=== PATIENT | female | born 1955 | race Caucasian/White ===

== ENCOUNTER → 2018-02-18 | Outpatient (CLI) | payer OTHER ==
--- NOTE | 2018-02-18 08:58 | RAD ---
EXAM DESCRIPTION: Knee,Left Complete CLINICAL HISTORY: 62 years, Female, PAIN IN LEFT KNEE COMPARISON: None TECHNIQUE: Four views left knee FINDINGS: Small joint effusion is present with very little degenerative arthropathy. Tiny amount of marginal osteophyte formation in several locations are noted. Joint spaces well-maintained with minimal narrowing at the periphery of the medial joint compartment. The bones are well-mineralized. No fracture or dislocation seen. IMPRESSION: 1. Minimal degenerative changes and small joint effusion left knee. Electronically signed by: Jose C Munoz MD 02/18/2018 8:57 AM CDT
--- NOTE | 2018-02-18 09:02 | RAD ---
EXAM DESCRIPTION: Pelvis CLINICAL HISTORY: 62 years Female, PAIN IN LEFT HIP COMPARISON: None. FINDINGS: The bony pelvis is intact with the joint spaces well-maintained. No specific left hip abnormality is noted. The pubic ramus and the ischium appear intact. Bony pelvic ring is intact. No soft tissue masses noted. IMPRESSION: No acute abnormality noted. Electronically signed by: Jose C Munoz MD 02/18/2018 9:01 AM CDT
== END ==
LOC: RAD 08:05
PROVIDERS: ATTEND Orthopaedic Surgery
DX: M25.562 Pain in left knee (principal); M25.552 Pain in left hip

== ENCOUNTER → 2018-05-01 | Outpatient (CLI) | payer OTHER | LOC: RESP 10:29 | PROVIDERS: ATTEND Orthopaedic Surgery | DX: Z01.818 Encounter for other preprocedural examination (principal) ==

== ENCOUNTER → 2018-05-04 | Outpatient (CLI) | payer OTHER | LOC: GMAL 12:01 | PROVIDERS: ATTEND Family Medicine | DX: R30.0 Dysuria (principal) ==

== ENCOUNTER 2018-05-08 05:35 | Day surgery (SDC) | payer OTHER ==
[2018-05-08] MEDS ORDERED: SODIUM CHL 0.9% 100ML MINI-BAG 100 ML IVPB ONE (06:08)
[2018-05-08] MEDS ORDERED: ceFAZolin SODIUM 1 GM VIAL ONE ×3 (06:09→09:00)
[2018-05-08] MEDS ORDERED: LACTATED RINGERS 1,000 ML ONE (06:09)
[2018-05-08] MEDS ORDERED: LACTATED RINGERS 1,000 ML BAG IV ONE (07:10)
[2018-05-08] MEDS ORDERED: MORPHINE SULFATE INJ 10 MG/ML VIAL ONE (07:33)
[2018-05-08] MEDS ORDERED: MIDAZOLAM INJ 2 MG/2 ML VIAL ONE (07:34)
[2018-05-08] MEDS ORDERED: LIDOCAINE 1% 10 ML VIAL INJ ONE ×2 (08:20→10:00)
[2018-05-08] MEDS ORDERED: BUPIVACAINE 0.25% W/EPI 50 ML VIAL INJ ONE (08:20)
[2018-05-08] MEDS: BUPIVACAINE LIPOSOME 13.3 MG/ML VIAL INJ ONE ×2 (08:39→09:09)
[2018-05-08] MEDS: SODIUM CHLORIDE 0.9% 50 ML VIAL ONE ×2 (08:40→09:09)
[2018-05-08] MEDS: ceFAZolin SODIUM 1 GM VIAL ONE ×2 (08:40→09:06)
[2018-05-08] MEDS: VANCOMYCIN HCL INJ 1,000 MG VIAL IVPB ONE ×2 (08:40→09:06)
[2018-05-08] MEDS ORDERED: SODIUM CHLORIDE 0.9% 1000ML 1,000 ML ONE (09:00)
[2018-05-08] MEDS ORDERED: DEXAMETHASONE INJ 10 MG/ML VIAL IV ONE (10:00)
[2018-05-08] MEDS ORDERED: KETOROLAC TROMETHAMINE INJ 30 MG/ML VIAL IV ONE (10:00)
[2018-05-08] MEDS ORDERED: METOCLOPRAMIDE HCL INJ 10 MG/2 ML VIAL IV ONE (10:00)
[2018-05-08] MEDS ORDERED: raNITIdine HCL INJ 25 MG/ML VIAL IV ONE (10:00)
[2018-05-08] MEDS ORDERED: PROPOFOL 200 MG/20 ML VIAL IV ONE (10:00)
[2018-05-08 11:07] VITALS: BP 114/74; TEMP 97.5; O2SAT 96
--- NOTE | 2018-05-20 08:53 | OP ---
DATE OF PROCEDURE: 05/08/18 PREOPERATIVE DIAGNOSIS: 1. Left knee meniscus tear. 2. Left knee osteoarthritis. POSTOPERATIVE DIAGNOSIS: 1. Left knee medial meniscus tear. 2. Left knee arthritis. 3. Loose body of the knee. PROCEDURE: 1. Chondroplasty. 2. Partial meniscectomy. 3. Removal of loose body. SURGEON: Shiraz Guerrire MD. AGED OR DISABLED CARER: Johnson Ruvalcaba CST, SA-C. ANESTHESIA: General anesthesia. COMPLICATIONS: None. FINDINGS: 1. Flap tear of the body of the medial meniscus with also degenerative fraying. 2. Full thickness cartilaginous loss in the medial femoral condyle. 3. Normal anterior cruciate ligament, normal posterior cruciate ligament. 4. 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 5. Full thickness cartilaginous loss on the lateral tibial plateau. 6. Degenerative changes in the lateral meniscus. 7. Normal lateral gutter. 8. Normal suprapatellar pouch. 9. Softening of the cartilage of the patellofemoral joint. 10. Normal medial gutter. INDICATION: Ms. Lorenzo has a long history of knee pain. She has had injections, however, has failed to gain relief with that or oral anti-inflammatories. She has modified her activities. However, that has failed to give her relief either. Because of her ongoing pain and failure of relief, she has requested operative intervention. After discussing the risks, benefits and alternatives to operative therapy, the patient has given informed consent. PROCEDURE: The patient was brought to the Operating Room and placed in supine position. General anesthesia was induced and the patient's leg was sterilely prepped and draped. Following prepping and draping, standard anteromedial and anterolateral portals were established. Diagnostic arthroscopy was carried out with the above findings. Attention was then focused on the medial femoral condyle. A 3.5 mm full radius shaver was used to debride the cartilaginous surfaces to stable base. The shaver was also used to debride the meniscus to a stable base. All debris was cleared from the knee. The knee was thoroughly irrigated and drained. Following draining of the knee, the wounds were closed with Nylon suture. Sterile dressings were placed. The patient was awoken from anesthesia and taken to Recovery. POSTOPERATIVE PLAN: The patient will followup with us in approximately two days. #[id number] [facility]
== END 2018-05-08 11:10 | disposition home or self-care (01) ==
LOC: AMB 05:35
PROVIDERS: ATTEND Orthopaedic Surgery
DX: M23.204 Derangement of unspecified medial meniscus due to old tear or injury, left knee (principal); M23.42 Loose body in knee, left knee; M94.262 Chondromalacia, left knee; M17.12 Unilateral primary osteoarthritis, left knee; Z79.899 Other long term (current) drug therapy
CPT/HCPCS: 01400; 29881; A4216; J0690; J1100; J1885; J2250; J2270; J2765; J2780; J3370; J3490; J7030; J7050; J7120

== ENCOUNTER → 2018-06-15 | Outpatient (CLI) | payer OTHER | LOC: RESP 08:29 | PROVIDERS: ATTEND Orthopaedic Surgery | DX: Z01.818 Encounter for other preprocedural examination (principal) ==

== ENCOUNTER 2018-07-01 06:08 | Day surgery (SDC) | payer OTHER ==
--- NOTE | 2018-06-30 07:50 | HP ---
CHIEF COMPLAINT: Right knee pain. HISTORY OF PRESENT ILLNESS: is a 62-year-old female with a history of knee pain that has been refractory to conservative measures. is having difficulty with her daily activities because of this. She does complain of some occasional clicking, but has had no gross locking. recently had surgery on the left knee for similar symptoms and she got complete relief. Because of her ongoing symptoms, she has requested operative intervention. After discussing the risks, benefits and alternatives to arthroscopy, the patient has given informed consent. PAST SURGICAL HISTORY: 1. Hysterectomy. 2. Knee arthroscopy. MEDICATIONS: 1. Meloxicam. 2. Ultram. ALLERGIES: SULFA. FAMILY HISTORY: None pertinent to today's complaint. SOCIAL HISTORY: The patient does not smoke or use any illicit drugs. She does drink on occasion. REVIEW OF SYSTEMS: Negative except as indicated in the History of Present Illness. PHYSICAL EXAMINATION: VITAL SIGNS: Blood pressure 107/73. Pulse 87. Height 5'4". Weight 127 pounds. MENTAL STATUS: The patient is awake, alert, and is able to give a good history and participate in the physical. The patient is oriented to person, place and time. SKIN: Normal tone and turgor. MUSCULOSKELETAL: She has diffuse pain, but most prominent along the medial aspect. She has no varus/valgus laxity and no anterior/posterior laxity. She does have crepitus. She has pain with patella mobilization. She has no effusion today. Strength is 5/5. Sensation is intact. IMAGING: X-rays show some arthritic changes, but no acute bony abnormality. ASSESSMENT: 1. Chondromalacia/arthritis. 2. Possible meniscus tear. PLAN: The plan at this point is knee arthroscopy. She has failed conservative measures and we have discussed the risks, benefits, and alternatives to that and the patient has given informed consent. #[id number] [facility]
[~2018-07-01 06:08] MED LIST: LACTATED RINGERS 1,000 ML ONE; SODIUM CHL 0.9% 50ML MIN-BAG+ 50 ML IVPB ONE; ceFAZolin SODIUM 1 GM VIAL ONE
[2018-07-01] MEDS ORDERED: ceFAZolin SODIUM 1 GM VIAL ONE (06:36)
[2018-07-01] MEDS ORDERED: ONDANSETRON INJ 4 MG/2 ML VIAL IV ONE (10:00)
[2018-07-01] MEDS ORDERED: LIDOCAINE 1% 10 ML VIAL INJ ONE (10:00)
[2018-07-01] MEDS ORDERED: PROPOFOL 200 MG/20 ML VIAL IV ONE (10:00)
[2018-07-01] MEDS ORDERED: DEXAMETHASONE INJ 10 MG/ML VIAL IV ONE (10:00)
[2018-07-01] MEDS ORDERED: ePHEDrine SULF 50 MG/ML IV ONE (10:00)
[2018-07-01] MEDS ORDERED: MIDAZOLAM INJ 2 MG/2 ML VIAL ONE (10:55)
[2018-07-01] MEDS ORDERED: fentaNYL CITRATE INJ 50 MCG/ML AMP ONE (10:55)
[2018-07-01] MEDS ORDERED: BUPIVACAINE LIPOSOME 13.3 MG/ML VIAL INJ ONE (11:42)
[2018-07-01] MEDS ORDERED: BUPIVACAINE 0.5% 30 ML VIAL INJ ONE (11:42)
[2018-07-01] MEDS: ceFAZolin SODIUM 1 GM VIAL ONE ×2 (12:19→12:40)
[2018-07-01] MEDS: VANCOMYCIN HCL INJ 1,000 MG VIAL IVPB ONE ×2 (12:20→12:40)
[2018-07-01 13:48] VITALS: BP 122/78; TEMP 97.4; O2SAT 98
--- NOTE | 2018-07-07 15:12 | OP ---
DATE OF PROCEDURE: 07/01/18 PREOPERATIVE DIAGNOSIS: 1. Meniscus tear. 2. Osteoarthritis. POSTOPERATIVE DIAGNOSIS: 1. Meniscus tear. 2. Arthritis. 3. Loose body. PROCEDURE: 1. Partial meniscectomy. 2. Chondroplasty. 3. Removal of loose body. SURGEON: Shiraz Guerrier MD. SLOT MACHINE MECHANIC: Johnson Ruvalcaba CST, SA-C. ANESTHESIA: General anesthesia. COMPLICATIONS: None. FINDINGS: 1. Full thickness defects on the medial femoral condyle. 2. Flap tear of the medial meniscus. 3. Loose body measuring 5 mm within the medial compartment. 4. Softening of the medial tibial plateau cartilage. 5. Normal anterior cruciate ligament. 6. Normal posterior cruciate ligament. 7. Softening of cartilaginous surfaces in the lateral compartment. 8. Normal lateral gutter. 9. Normal suprapatellar pouch. 10. Full thickness defects involving the patellofemoral joint. 11. Normal medial gutter. INDICATION: is a patient of ours that we have seen and treated for bilateral knee pain. She has had left knee arthroscopy and has requested right knee arthroscopy secondary to failure of conservative measures. After discussing the risks, benefits and alternatives to that, the patient has given informed consent for arthroscopy. PROCEDURE: The patient was brought to the Operating Room and placed in supine position. General anesthesia was induced and the patient's leg was sterilely prepped and draped. Following prepping and draping, standard anteromedial and anterolateral portals were established. Diagnostic arthroscopy was carried out with the above findings. Once diagnostic arthroscopy had been carried out, attention was then focused on the medial compartment and debridement of the cartilaginous surface of the femur was performed. The medial meniscus was debrided and the loose body was removed. The meniscus and the chondral surface were both probed to ensure that they were stable. Following that, the knee was thoroughly irrigated and drained. Following draining of the knee, the wounds were closed with Nylon suture. Sterile dressings were placed. The patient was awoken from anesthesia and taken to Recovery. POSTOPERATIVE PLAN: The patient will be partial weightbearing and will followup with us in about two days. [facility][id number] [facility]
== END 2018-07-01 13:50 | disposition home or self-care (01) ==
LOC: AMB 06:08
PROVIDERS: ATTEND Orthopaedic Surgery
DX: M23.203 Derangement of unspecified medial meniscus due to old tear or injury, right knee (principal); M23.41 Loose body in knee, right knee; M13.861 Other specified arthritis, right knee; Z88.2 Allergy status to sulfonamides; Z79.899 Other long term (current) drug therapy
CPT/HCPCS: 01400; 29881; J0690; J1100; J2250; J2405; J3010; J3370; J3490; J7050; J7120